=== PATIENT | male | born 1950 | race Caucasian/White ===

== ENCOUNTER → 2018-09-19 | Day surgery (SDC) | payer MEDICARE, BC ==
[~2018-09-19] MED LIST: Dexamethasone 4 MG/ML SDV IV ONE; Glycopyrrolate 0.2 MG/ML SDV IVPUSH ONE; Ketorolac 30 MG/ML SDV IVPUSH ONE; Lactated Ringers 1,000 ML IV SCH; Lidocaine 1% 20 ML MDV ONE; Midazolam 1 MG/ML 2 ML SDV IV ONE; Ondansetron 4 MG/2 ML SDV IV ONE; Propofol 200 MG/20 ML SDV IV ONE; ceFAZolin 1 GM Vial IVPUSH ONE; ceFAZolin 1 GM Vial ONE; ePHEDrine 50 MG/ML SDV IV ONE; fentaNYL 100 MCG/2 ML SDV IV ONE
--- NOTE | 2018-09-19 15:57 | OR ---
DATE OF OPERATION: 09/19/2018 PREOPERATIVE DIAGNOSIS: LEFT INGUINAL HERNIA. POSTOPERATIVE DIAGNOSIS: LEFT DIRECT INGUINAL HERNIA. SURGEON: Leonard Irwin MD PROCEDURE: OPEN REPAIR OF LEFT DIRECT INGUINAL HERNIA WITH MESH. ANESTHESIA: General. ESTIMATED BLOOD LOSS: Minimum. SPECIMEN: None. INDICATIONS: This 68-year-old male has a large left inguinal hernia on physical examination. DESCRIPTION OF PROCEDURE: After adequate preparation, a transverse incision was made over the left groin and carried down through the Lamberto's fascia to the external oblique. This was incised in the direction of the fibers and taken down to the external inguinal ring. This then exposed the hernia sac and a the cord structures. Examination showed this to be a large direct inguinal hernia. The cord structures were dissected free from any of the surrounding structures and moved out of the way. A Prolene mesh was used that had a pre-fashioned keyhole cut in for the cord. This was positioned in place over the inguinal floor and sewn to the inguinal ligament with a running 0 Prolene suture and interrupted Prolene sutures for the superior flap underneath the external oblique fascia. This keyhole was then positioned around the spermatic cord and the tails of the keyhole sewn together. This laid nicely along the inguinal floor. Several interrupted Prolene sutures were used to reinforce the running suture on the lower edge. The external oblique was sewn over the cord structures and mesh to close the inguinal canal. Vicryl was used for the subcutaneous layer and for the skin. MAGY/ROBER /[id number]
== END ==
LOC: CC.SDS 08:21
PROVIDERS: ATTEND Surgery
DX: K40.90 Unilateral inguinal hernia, without obstruction or gangrene, not specified as recurrent (principal); I11.0 Hypertensive heart disease with heart failure; I50.9 Heart failure, unspecified; E03.9 Hypothyroidism, unspecified; N40.0 Benign prostatic hyperplasia without lower urinary tract symptoms; I42.9 Cardiomyopathy, unspecified; Z79.890 Hormone replacement therapy; Z79.82 Long term (current) use of aspirin; Z79.899 Other long term (current) drug therapy
CPT/HCPCS: 49505; J0690; J1100; J1885; J2250; J2405; J2704; J3010; J3490; J7120

== ENCOUNTER → 2020-10-01 | Day surgery (SDC) | payer MEDICARE, BC ==
[~2020-10-01] MED LIST changes: -Dexamethasone 4 MG/ML SDV IV ONE; -Glycopyrrolate 0.2 MG/ML SDV IVPUSH ONE; +Ketamine 200 MG/20 ML MDV ONE; -Ketorolac 30 MG/ML SDV IVPUSH ONE; -Lidocaine 1% 20 ML MDV ONE; -Midazolam 1 MG/ML 2 ML SDV IV ONE; -Ondansetron 4 MG/2 ML SDV IV ONE; +Phenylephrine 1% 10 MG/ML SDV ONE; -Propofol 200 MG/20 ML SDV IV ONE; +Propofol 200 MG/20 ML SDV ONE; -ceFAZolin 1 GM Vial IVPUSH ONE; -ceFAZolin 1 GM Vial ONE; -ePHEDrine 50 MG/ML SDV IV ONE; -fentaNYL 100 MCG/2 ML SDV IV ONE; +fentaNYL 100 MCG/2 ML SDV ONE
--- NOTE | 2020-10-01 11:36 | OR ---
DATE OF OPERATION: 10/01/2020 PREOPERATIVE DIAGNOSIS: HISTORY OF POLYPS. POSTOPERATIVE DIAGNOSIS: HISTORY OF POLYPS. SURGEON: Anil Brooks MD PROCEDURE: FULL-LENGTH COLONOSCOPY WITH FORCEPS POLYP REMOVAL X2. ANESTHESIA: MAC. COMPLICATIONS: None. SPECIMEN: Two small sessile polyps/lymphoid aggregates, hepatic flexure. FINDINGS: 1. Full-length colonoscopy. 2. Mild sigmoid diverticulosis. 3. Two small lymphoid aggregates, hepatic flexure. RECOMMENDATIONS: Followup colonoscopy routine in 10 years, pending path reports. INDICATIONS: The patient has a prior history of polyps being removed. It is approximately 7 years since his last scope. We recommended a followup procedure. DESCRIPTION OF PROCEDURE: The patient was prepped and draped, placed in the left lateral decubitus position. A lubricated Olympus colonoscope was inserted and with ease advanced to the cecum. Direct visualization of the ileocecal valve and appendiceal orifice was accomplished. The bowel prep was adequate. Upon withdrawal of the scope, the cecum and ascending colon were benign. Just past the hepatic flexure, the patient had 2 small sessile polyps/lymphoid aggregates. Both were removed with forceps in their entirety without any complication. The rest of the transverse and descending colons were benign. The patient does have very mild diverticular disease in the sigmoid colon extending to the rectosigmoid junction. No other polyps, masses, ulceration, or bleeding sites were seen. There were no vascular abnormalities or signs of colitis. The rectal vault appeared benign. Retroflexion showed no perianal lesions. Air was suctioned and the scope removed without complication. ALPA/ROBER /[id number]
== END ==
LOC: CC.SDS 09:42
PROVIDERS: ATTEND Family Medicine
DX: Z12.11 Encounter for screening for malignant neoplasm of colon (principal); K57.30 Diverticulosis of large intestine without perforation or abscess without bleeding; K63.5 Polyp of colon; N40.0 Benign prostatic hyperplasia without lower urinary tract symptoms; I42.9 Cardiomyopathy, unspecified; I10 Essential (primary) hypertension; E03.9 Hypothyroidism, unspecified; Z01.812 Encounter for preprocedural laboratory examination; Z20.822 Contact with and (suspected) exposure to COVID-19; L57.0 Actinic keratosis; Z79.82 Long term (current) use of aspirin; Z79.899 Other long term (current) drug therapy; Z79.890 Hormone replacement therapy
CPT/HCPCS: 45380; J2370; J2704; J3010; J7120; U0002